=== PATIENT | male | born 1985 | race Two or more races ===

== ENCOUNTER 2016-05-13 23:03 | Emergency (ER) | payer SELFPAY ==
[~2016-05-13] VITALS: Ht 195.6 cm; Wt 144.2 kg
[2016-05-14 00:08] LABS: Basophils # (auto) 0.1 uL; Basophils % (auto) 0.9 % (0.0-2.0); Eosinophils # (auto) 0.4 uL; Eosinophils % (auto) 3.1 % (0.0-7.0); Hematocrit 49.7 % (41.0-53.0); Hemoglobin 15.7 g/dL (13.5-17.5); Lymphocytes # (auto) 3.5 uL; Mean Corpuscular Hemoglobin 27.1 pg (28.0-32.0); Mean Corpuscular Hgb Conc. 31.6 g/dL (32.0-36.0); Mean Corpuscular Volume 85.8 fL (80.0-100.0); Mean Platelet Volume 9.5 fL (7.4-10.4); Monocytes % (auto) 7.6 % (0.0-12.0); Neutrophils # (auto) 8.4 uL; Neutrophils % (auto) 62.4 % (37.0-80.0); Platelet Count (auto) 240 10^3/uL (140-450); Red Cell Distribution Width 13.4 % (11.6-16.0); White Blood Cell 13.4 10^3/uL (4.4-10.8)
[2016-05-14 00:17] LABS: INR 0.97 (0.9-1.15); Partial Thromboplastin Time 24.7 sec (22.64-33.71)
[2016-05-14 00:19] LABS: Albumin 3.3 g/dL (3.4-5.0); BUN/Creatinine Ratio 10.5; Calcium 8.4 mg/dL (8.5-10.1); Potassium 4.1 mmol/L (3.5-5.1)
[2016-05-14 00:22] LABS: Bilirubin, Total 0.2 mg/dL (0.2-1.0); Total Protein 7.8 g/dL (6.4-8.2)
[2016-05-14 00:28] LABS: B-Type Natriuretic Peptide 15.11 pg/mL (0-100)
[2016-05-14 00:29] LABS: Temperature: 22.7 C (20.0-25.0)
[2016-05-14] MEDS ORDERED: KETOROLAC TROMETH 30 MG/ML 1ML VIAL IV ONE (02:00)
[2016-05-14] MEDS ORDERED: cefTRIAXone 1GM/50ML D5W 50 ML IV ONE (02:30)
[2016-05-14] MEDS ORDERED: HYDROmorphone HCL 2 MG/ML VL IV ONE (03:30)
[2016-05-14 04:33] LABS: Urine Bilirubin Negative (Negative); Urine Blood Negative /uL (Negative); Urine Color Yellow (Yellow); Urine Glucose Normal (Normal); Urine Ketone Negative (Negative); Urine Mucus FEW (None Seen); Urine Nitrite Negative (Negative); Urine RBC 1 /hpf (0 - 3); Urine Urobilinogen Normal (Negative)
[2016-05-14 05:14] VITALS: BP 122/86
== END 2016-05-14 04:12 | disposition home or self-care (01) ==
LOC: ER 23:08
DX: J40 Bronchitis, not specified as acute or chronic (principal); M79.672 Pain in left foot; I10 Essential (primary) hypertension; M10.9 Gout, unspecified; E87.0 Hyperosmolality and hypernatremia
CPT/HCPCS: 36415; 71010; 74176; 80053; 81001; 83880; 84484; 85025; 85610; 85730; 93005; 96365; 96375; 99285; J0696; J1170; J1885

== ENCOUNTER 2016-05-28 22:23 | Emergency (ER) | payer SELFPAY ==
[~2016-05-28] VITALS: Ht 195.6 cm; Wt 133.8 kg
[2016-05-28 22:34] VITALS: BP 168/93
[2016-05-28] MEDS ORDERED: COLCHICINE 0.6 MG TAB/CAP PO ONE (23:45)
[2016-05-28] MEDS ORDERED: KETOROLAC TROMETH 60MG/2ML VIAL IM ONE (23:45)
== END 2016-05-29 00:33 | disposition home or self-care (01) ==
LOC: ER 22:25
DX: M10.071 Idiopathic gout, right ankle and foot (principal); I10 Essential (primary) hypertension; E66.9 Obesity, unspecified; Z68.35 Body mass index [BMI] 35.0-35.9, adult; Z87.442 Personal history of urinary calculi
CPT/HCPCS: 73630; 96372; 99284; J1885